=== PATIENT | male | born 2000 | race Caucasian/White ===

== ENCOUNTER 2024-10-09 20:52 | Emergency (ER) | payer BC ==
[2024-10-09] MEDS: Ketorolac 30 MG/ML SDV IM ONE (21:22)
== END 2024-10-09 22:35 | disposition home or self-care (01) ==
LOC: JD.ED 20:52
DX: S93.401A Sprain of unspecified ligament of right ankle, initial encounter (principal); Z86.16 Personal history of COVID-19; W18.49XA Other slipping, tripping and stumbling without falling, initial encounter
CPT/HCPCS: 73610; 96372; 99283; J1885; 99282